=== PATIENT | female | born 1965 | race Caucasian/White ===

== ENCOUNTER 2022-09-24 07:43 | Day surgery (SDC) | payer BC ==
[2022-09-24] MEDS ORDERED: Ketamine 500 mg/10 ML MDV IV ONE (07:44)
[2022-09-24] MEDS ORDERED: Propofol 200 MG/20 ML SDV IV ONE (07:44)
[2022-09-24] MEDS ORDERED: Midazolam 1 MG/ML 2 ML SDV IV ONE (07:44)
[2022-09-24] MEDS ORDERED: Sodium Chloride 0.9% 10 ML Syringe FLUSH PRN (07:45)
[2022-09-24] MEDS ORDERED: Lactated Ringers 1,000 ML IV SCH (07:45)
[2022-09-24] MEDS ORDERED: Simethicone Drops 40 MG/0.6 ML 30 ML Bottle PO ONE (09:51)
== END 2022-09-24 11:18 | disposition home or self-care (01) ==
LOC: FB.SDS 07:43
PROVIDERS: ATTEND Surgery
DX: Z12.11 Encounter for screening for malignant neoplasm of colon (principal); D12.6 Benign neoplasm of colon, unspecified; F41.9 Anxiety disorder, unspecified; F32.A Depression, unspecified; E11.9 Type 2 diabetes mellitus without complications; I10 Essential (primary) hypertension; E28.2 Polycystic ovarian syndrome; F42.9 Obsessive-compulsive disorder, unspecified; E03.9 Hypothyroidism, unspecified; E66.01 Morbid (severe) obesity due to excess calories; Z80.0 Family history of malignant neoplasm of digestive organs; Z79.85 Long-term (current) use of injectable non-insulin antidiabetic drugs; Z79.84 Long term (current) use of oral hypoglycemic drugs; Z79.890 Hormone replacement therapy; Z79.899 Other long term (current) drug therapy; Z88.8 Allergy status to other drugs, medicaments and biological substances; Z91.040 Latex allergy status; Z90.49 Acquired absence of other specified parts of digestive tract; Z98.84 Bariatric surgery status; Z98.890 Other specified postprocedural states; Z68.42 Body mass index [BMI] 45.0-49.9, adult
CPT/HCPCS: 00812; 45385; 82947; 88305; A9270; J2250; J2704; J3490; J7120